=== PATIENT | female | born 1995 | race Two or more races ===

== ENCOUNTER 2019-02-03 16:52 | Observation (INO) | payer BC ==
[~2019-02-03] VITALS: Ht 165.1 cm; Wt 78.5 kg
== END 2019-02-03 19:45 | disposition home or self-care (01) ==
LOC: 8 EST LDRP 16:52 → 8 EST A/PP 18:57
PROVIDERS: ADMIT Specialist; ATTEND Specialist
DX: Z34.83 Encounter for supervision of other normal pregnancy, third trimester (principal); Z3A.36 36 weeks gestation of pregnancy
CPT/HCPCS: 76815; 76818; 99281; G0378

== ENCOUNTER 2019-02-13 13:39 | Observation (INO) | payer BC | END 2019-02-13 15:00 | disposition home or self-care (01) | LOC: 8 EST LDRP 13:39 | PROVIDERS: ADMIT Obstetrics & Gynecology; ATTEND Obstetrics & Gynecology | DX: O26.893 Other specified pregnancy related conditions, third trimester (principal); R10.9 Unspecified abdominal pain; O36.8130 Decreased fetal movements, third trimester, not applicable or unspecified; O62.9 Abnormality of forces of labor, unspecified; Z3A.38 38 weeks gestation of pregnancy | CPT/HCPCS: 99281; G0378 ==

== ENCOUNTER 2019-02-18 21:39 | Observation (INO) | payer BC, MEDICAID ==
[~2019-02-18] VITALS: Ht 165.1 cm; Wt 78.0 kg
== END 2019-02-19 01:00 | disposition home or self-care (01) ==
LOC: 8 EST LDRP 21:39
PROVIDERS: ADMIT Obstetrics & Gynecology; ATTEND Obstetrics & Gynecology
DX: O42.92 Full-term premature rupture of membranes, unspecified as to length of time between rupture and onset of labor (principal); Z3A.39 39 weeks gestation of pregnancy
CPT/HCPCS: 76805; 76818; 99281; G0378

== ENCOUNTER 2019-02-27 11:59 | Observation (INO) | payer BC, MEDICAID ==
[~2019-02-27] VITALS: Ht 165.1 cm; Wt 81.2 kg
== END 2019-02-27 14:20 | disposition home or self-care (01) ==
LOC: 8 EST LDRP 11:59
PROVIDERS: ADMIT Obstetrics & Gynecology; ATTEND Obstetrics & Gynecology
DX: O62.9 Abnormality of forces of labor, unspecified (principal); Z3A.40 40 weeks gestation of pregnancy
CPT/HCPCS: 76815; 76818; 99281; G0378

== ENCOUNTER 2022-01-06 21:47 | Day surgery (SDC) | payer BC, MEDICAID ==
[~2022-01-06] VITALS: Ht 165.1 cm; Wt 69.0 kg
[2022-01-06] MEDS ORDERED: MORPHINE SULFATE 4 MG/ML CPJ (NOT FOR IM USE) IV ONE (23:00)
[2022-01-06] MEDS ORDERED: ONDANSETRON HCL 4MG/2ML INJ IV ONE (23:00)
[2022-01-06 23:19] LABS: BASOPHILS % 0.5 % (0.0-2.0); EOSINOPHILS % 0.9 % (0.0-5.0); HEMATOCRIT. 31.3 % (36.0-48.0); HEMOGLOBIN. 11.1 g/dL (12.0-16.0); LYMPHOCYTES % 12.5 % (20.0-50.0); MEAN CORPUSCULAR HEMOGLOBIN 33.2 pg (28.0-32.0); MEAN CORPUSCULAR VOLUME 93.5 fL (81.0-99.0); MEAN PLATELET VOLUME 8.6 fl (7.4-10.4); MONOCYTES % 7.1 % (2.0-8.0); PLATELET 195 x1000/uL (130-400); RED BLOOD CELL COUNT 3.34 mill/uL (4.2-5.4); RED CELL DISTRIBUTION WIDTH 12.8 % (11.6-14.6)
[2022-01-06 23:21] LABS: CHLORIDE 104 mEq/L (98-107)
[2022-01-06 23:26] LABS: INR 1.1; PROTHROMBIN TIME 11.4 sec (9.6-11.0)
[2022-01-06 23:50] LABS: B-HCG QUANTITATIVE 3708 mIU/mL (<3)
[2022-01-07 01:23] LABS: CLARITY URINE TURBID (CLEAR); COLOR URINE RED (YELLOW); HEMATOCRIT 32.1 % (36.0-48.0); HEMOGLOBIN 11.2 g/dL (12.0-16.0); KETONES URINE NEGATIVE (NEGATIVE); LEUKOCYTE ESTERASE URINE 2+ (NEGATIVE); NITRITE URINE POSITIVE (NEGATIVE); OCCULT BLOOD URINE 2+ (NEGATIVE); PROTEIN URINE 2+ (NEGATIVE); SPECIFIC GRAVITY URINE 1.013 (1.005-1.030); UROBILINOGEN URINE 0.2 E.U./dL (0.2-1.0)
[2022-01-07] MEDS ORDERED: SODIUM CHLORIDE 0.9% 1,000 ML IV ONE ×2 (01:45→04:00)
[2022-01-07] MEDS ORDERED: TOPUD PO (02:09)
[2022-01-07] MEDS ORDERED: SODIUM CHLORIDE 0.9% 500 ML IV ONE (03:30)
[2022-01-07] MEDS ORDERED: MISOPROSTOL 200MCG TABLET PO SCH (04:00)
[2022-01-07 06:02] LABS: HEMATOCRIT 28.8 % (36.0-48.0)
[2022-01-07 06:58] VITALS: BP 100/48
[2022-01-07] MEDS ORDERED: PROPOFOL 200MG/20ML VIAL IV ONE (07:46)
[2022-01-07] MEDS ORDERED: MIDAZOLAM HCL 2 MG/2 ML VIAL ONE (07:46)
[2022-01-07] MEDS ORDERED: DEXAMETHASONE 4MG/ML 1ML VIAL ONE (07:50)
[2022-01-07] MEDS ORDERED: FENTANYL CITRATE/PF 50MCG/ML 2ML VIAL ONE (07:50)
[2022-01-07] MEDS ORDERED: ONDANSETRON HCL 4MG/2ML INJ ONE (07:50)
[2022-01-07] MEDS ORDERED: PHENYLEPHRINE HCL 10 MG/ML 1ML (IV VIAL) IV ONE (07:51)
[2022-01-07] MEDS ORDERED: CEFAZOLIN SODIUM 1000MG/VIAL ONE (07:52)
[2022-01-07] MEDS ORDERED: HYDROMORPHONE HCL/PF 2MG/ML CPJ IV PRN (08:30)
[2022-01-07] MEDS ORDERED: ATROPINE SULFATE 0.4MG/ML VIAL IV PRN (08:30)
[2022-01-07] MEDS ORDERED: FENTANYL CITRATE/PF 50MCG/ML 2ML VIAL IV PRN (08:30)
[2022-01-07] MEDS ORDERED: KETOROLAC 30MG/ML VIAL ONE (09:08)
[2022-01-07] MEDS ORDERED: KETOROLAC 60MG/2ML VIAL IM NR (09:15)
[2022-01-07] MEDS ORDERED: ONDANSETRON HCL 4MG/2ML INJ IV PRN (09:15)
[2022-01-07] MEDS ORDERED: ACETAMINOPHEN 325MG TABLET PO PRN ×2 (09:15)
[2022-01-07] MEDS ORDERED: METH PO (09:22)
[2022-01-07] MEDS ORDERED: MULT-1116 MT (09:22)
[2022-01-07] MEDS ORDERED: IBUP-2030 MT (09:22)
[2022-01-07] MEDS ORDERED: FERR324T22 MT (09:22)
[2022-01-07] MEDS ORDERED: ACETAMINOPHEN 650MG SUPP PR PRN (09:30)
[2022-01-07] MEDS ORDERED: DEXT 5%/0.45% NACL KCL 20MEQ/L 1,000 ML IV SCH (09:30)
== END 2022-01-07 11:40 | disposition home or self-care (01) ==
LOC: ER 22:05 → 5EST 01-07 03:42 → UNDOADMIN 01-07 03:42 → EDBEDREQ 01-07 03:50 → OR 01-07 09:12 → UNDODISIN 01-07 12:30
PROVIDERS: ATTEND Specialist
PROC: 10D17ZZ Extraction of Products of Conception, Retained, Via Natural or Artificial Opening (ICD-10-PCS; principal; 2022-01-07)
DX: O03.4 Incomplete spontaneous abortion without complication (principal); O99.011 Anemia complicating pregnancy, first trimester; Z20.822 Contact with and (suspected) exposure to COVID-19; Z79.899 Other long term (current) drug therapy
CPT/HCPCS: 36415; 59812; 76830; 76856; 80053; 81003; 84702; 85014; 85018; 85025; 85610; 86850; 86900; 86901; 87426; 88305; 99285; C9803; J0690; J1100; J1885; J2250; J2270; J2370; J2405; J2704; J3010; J7030; J7040